=== PATIENT | male | born 1990 ===

== ENCOUNTER 2018-04-30 12:02 | Emergency (ER) | payer SELFPAY ==
--- NOTE | 2018-04-30 13:02 | EDPHY ---
H & P Stated Complaint: L WRIST INJ 4 DAYS AGO CLIMBING Time Seen by Provider: 04/30/18 13:01 HPI/ROS: Chief Complaint: Left wrist injury HPI: The patient presents the ED after he experienced a distraction injury involving his left wrist while climbing 4 days ago. The patient reports he has had a sensation of subluxation occurring intermittently since that time. He denies any acute numbness or weakness. He denies additional complaints. REVIEW OF SYSTEMS: Neuro: no headache, numbness, weakness Musculoskeletal: as above Skin: no abrasion or lacerations Source: Patient Exam Limitations: No limitations - Personal History Current Tetanus Diphtheria and Acellular Pertussis (TDAP): Yes - Medical/Surgical History Hx Asthma: No Hx Chronic Respiratory Disease: No Hx Diabetes: No Hx Cardiac Disease: No Hx Renal Disease: No Hx Cirrhosis: No Hx Alcoholism: No Hx HIV/AIDS: No Hx Splenectomy or Spleen Trauma: No Other PMH: DENIES - Social History Smoking Status: Never smoked - Physical Exam Exam: General Appearance: Alert, no distress Skin: No lacerations, No abrasion Extremities: Tenderness to palpation left wrist, no effusion, normal range of motion Neurological: Neurologically intact in the left upper extremity Constitutional: Initial Vital Signs Temperature (C) 36.6 C 04/30/18 12:05 Heart Rate 86 04/30/18 12:05 Respiratory Rate 18 04/30/18 12:05 Blood Pressure 112/81 H 04/30/18 12:05 O2 Sat (%) 98 04/30/18 12:05 O2 Delivery Mode Room Air Allergies/Adverse Reactions: No Known Allergies Allergy (Unverified 04/30/18 12:04) Home Medications: Medication Instructions Recorded NK [No Known Home Meds] 04/30/18 Medical Decision Making - Diagnostics Imaging Results: Imaging Impressions Wrist X-Ray 04/30/18 12:08 Impression: No evidence for acute osseous abnormality right wrist. ED Course/Re-evaluation: X-ray demonstrates no evidence of an obvious sprain. The patient is placed in a Velcro splint. He is advised to follow up with our orthopedic surgeon for any persistent pain, decreased range of motion, abnormal mobility or other concerns. Differential Diagnosis: Differential diagnosis considered includes fracture, sprain, dislocation Departure - Departure Disposition: Home, Routine, Self-Care Clinical Impression: Left wrist sprain Qualifiers: Encounter type: initial encounter Qualified Code(s): S63.502A - Unspecified sprain of left wrist, initial encounter Condition: Good Instructions: Wrist Sprain (ED) Additional Instructions: 1. Wear splint as needed for comfort. 2. Take Ibuprofen or Motrin 600 mg by mouth three times a day. 3. Follow up with the orthopedic surgeon you have been referred to for any persistent pain, swelling, immobility, instability or other concerns. This may be the sign of an injury not noted on the x-ray today which requires further intervention. Referrals: Wisam Thomas MD [Medical Doctor] - As per Instructions
[2018-04-30 13:20] VITALS: BP 137/76
== END 2018-04-30 13:20 | disposition home or self-care (01) ==
DX: S63.502A Unspecified sprain of left wrist, initial encounter (principal); Y93.39 Activity, other involving climbing, rappelling and jumping off; Y92.9 Unspecified place or not applicable; Y99.9 Unspecified external cause status
CPT/HCPCS: L3984